=== PATIENT | female | born 1945 | race Two or more races ===

== ENCOUNTER 2024-08-24 10:13 | Outpatient (CLI) | payer OTHER | END 2024-08-24 10:17 | disposition home or self-care (01) | LOC: NUCLEAR 10:13 | PROVIDERS: ATTEND Thoracic Surgery (Cardiothoracic Vascular Surgery) | DX: I87.2 Venous insufficiency (chronic) (peripheral) (principal) ==

== ENCOUNTER 2024-08-26 10:16 | Outpatient (CLI) | payer OTHER | END 2024-08-26 10:20 | disposition home or self-care (01) | LOC: NUCLEAR 10:16 | PROVIDERS: ATTEND Thoracic Surgery (Cardiothoracic Vascular Surgery) | DX: I73.9 Peripheral vascular disease, unspecified (principal) ==